=== PATIENT | male | born 1975 | race Caucasian/White ===

== ENCOUNTER 2017-09-17 02:41 | Emergency (ER) | payer OTHER ==
[~2017-09-17] VITALS: Ht 180.3 cm; Wt 123.0 kg
[~2017-09-17 02:41] MED LIST: ALLO100T PO; LISI20TA3 PO; METO50TA16 PO; NIAC100T5 PO; OMEP40CA41 PO
[2017-09-17 02:43] VITALS: Ht 180.3 cm; Wt 123.0 kg
[2017-09-17] MEDS ORDERED: LORAZEPAM 2 MG/ML 1 ML VIAL IV STA (03:06)
--- NOTE | 2017-09-17 03:07 | EMERGENCY ROOM VISIT NOTE ---
History Report prepared by Consuelo: Henrik Carter Under the Supervision of: Dr. Flori Enriquez D.O. First contact with patient: 02:55 Chief Complaint: BACK INJURY Stated Complaint: BACK INJURY History of Present Illness The patient is a 42 year old male who presents to the Emergency Room with complaints of constant back pain that onset suddenly yesterday. The patient states that he attempted to bend over yesterday to pick something up off of a low shelf. He felt his back pain onset immediately after bending over. He has had back pain in the past and commonly takes Metaxalone. The patient went to sleep last night and woke up this morning at 0200 in "intense" pain. The pain is now radiating around the left hip and down the left leg. He cannot lift his left leg without sharp pain and claims that he had to crawl to the car to get to the hospital this evening. He did take a Metaxalone tablet for his pain today. The patient denies ever having any imaging of the spine performed in the past. Source of History: patient Onset: Yesterday Position: back Symptom Intensity: "intense" Quality: sharp Timing: constant Review of Systems See HPI for pertinent positives & negatives. A total of 10 systems reviewed and were otherwise negative. Past Medical & Surgical Medical Problems: (1) Gout (2) High triglycerides (3) HTN (hypertension) (4) HTN (hypertension) Family History Patient reports no known family medical history. Social History Smoking Status: Never Smoker Drug Use: none Marital Status: Occupation Status: employed Current/Historical Medications Scheduled Lisinopril (Lisinopril), 15 MG PO DAILY Metoprolol Tartrate (Lopressor) (Lopressor), 50 MG PO BID Scheduled PRN Metaxalone (Skelaxin), 800 MG PO QID PRN for Pain Allergies Coded Allergies: Indomethacin (Unverified Allergy, Intermediate, swollen tongue, 09/17/17) Physical Exam Vital Signs Date Time Temp Pulse Resp B/P (MAP) Pulse Ox O2 Delivery O2 Flow Rate FiO2 09/17/17 04:33 36.3 72 18 125/65 96 Room Air 09/17/17 03:42 36.4 70 18 122/74 96 Room Air 09/17/17 02:43 36.4 76 18 164/113 95 Room Air Physical Exam Heart: Regular rate and rhythm. There is a normal S1 and S2 with no murmurs, clicks, or gallops appreciated. Lungs: Clear to auscultation bilaterally with no wheezes, rales, or rhonchi. Abdomen: Soft, completely nontender, nondistended, with good bowel sounds. There are no palpable pulsatile masses or hepatosplenomegaly. There is no guarding, rigidity, or rebound noted. Back: There is moderate discomfort with palpation of the left lower back. There is significant muscle spasm. Extremities: No evidence of cyanosis, clubbing, or edema. There are easily palpable peripheral pulses. Skin: warm and dry with good turgor and no rashes. Medical Decision & Procedures Medications Administered Medications (Trade) Dose Ordered Sig/Cam Route Start Time Stop Time Status Last Admin Dose Admin Lorazepam (Ativan Inj) 1 mg NOW STAT IV 09/17/17 03:06 09/17/17 03:07 DC 09/17/17 03:11 1 MG Ketorolac Tromethamine (Toradol Inj) 30 mg NOW STAT IV 09/17/17 03:09 09/17/17 03:10 DC 09/17/17 03:13 30 MG Ketorolac Tromethamine (Toradol Inj) 30 mg NOW STAT IV 09/17/17 03:48 09/17/17 03:50 DC 09/17/17 03:52 30 MG Oxycodone/ Acetaminophen (Percocet 5-325mg Tab) 2 tab NOW ONCE PO 09/17/17 04:30 09/17/17 04:31 DC 09/17/17 04:23 2 TAB Oxycodone/ Acetaminophen (Percocet 5/ 325MG Home Pack) 1 homepack UD ONCE PO 09/17/17 04:30 09/17/17 04:31 DC 09/17/17 04:22 1 HOMEPACK Procedure Medications Ordered: Toradol X 2, Ativan, Percocet ED Course 0256: Past medical records reviewed. The patient was evaluated in room B10. A complete history and physical exam was performed. 0306: Ordered Ativan 1 mg IV. 0309: Ordered Toradol 30 mg IV. 0344: I checked on the patient at this time. He has experienced moderate relief. 0348: Ordered Toradol 30 mg IV. 0426: Upon reevaluation, the patient feels better. He has some discomfort with standing still. I discussed findings and results with the patient. He verbalized agreement of the treatment plan. The patient will be discharged home with a Percocet homepack. 0430: Ordered 1 Percocet homepack PO. Medical Decision The patient is a 42 year old male who presents to the Emergency Department for lower back pain. Differential Diagnosis includes; Acute lumbar disc herniation, sciatica, ureteral colic, cauda equina syndrome, and lumbar strain. The patient presents here after bending over to pick something up off of a shelf and having acute and sudden onset of left-sided low back pain. The pain seems to radiate around his left flank, left groin and left anterior thigh. The patient has normal pedal push and pull in the left lower extremity. He is unable to lift leg up off the bed because of the pain in the back. The patient has normal sensation in both of his feet. The patient does describe a history of intermittent episodes of low back pain. I explained to him that he would most likely require an MRI of the lumbar spine at some point to rule out acute disc herniation. The patient got moderate relief of his discomfort in the low back after receiving the IV analgesia and muscle relaxant. The patient will be discharged home with a Percocet home pack. He is encouraged to use Motrin and his previous prescribed muscle relaxant. The patient was told to follow-up with his PCP for possible MRI of the lumbar spine. If symptoms worsen or if the patient develops any weakness in his legs or difficulty controlling his bowels or bladder he will need to return to the emergency department immediately. Medication Reconcilliation Current Medication List: was personally reviewed by me Blood Pressure Screening Patient's blood pressure: Elevated blood pressure BP elevated secondary to pain, situational. Impression Primary Impression: Strain of lumbar region Scribe Attestation The scribe's documentation has been prepared under my direction and personally reviewed by me in its entirety. I confirm that the note above accurately reflects all work, treatment, procedures, and medical decision making performed by me. Departure Information Dispostion Home / Self-Care Referrals Linnea Hunt D.O. (PCP) Forms HOME CARE DOCUMENTATION FORM, IMPORTANT VISIT INFORMATION Patient Instructions My [facility] [place] Additional Instructions Rest. Do not lift anything greater than 5 lbs. Limit strenuous activity. Apply heat to the low back. Motrin - 800mg every 6 hours with food for pain. Use the muscle relaxant as directed. Problem Qualifiers Primary Impression: Strain of lumbar region Encounter type: initial encounter Qualified Codes: S39.012A - Strain of muscle, fascia and tendon of lower back, initial encounter
[2017-09-17] MEDS ORDERED: KETOROLAC TROMETHAMINE 30 MG/ML VIAL IV STA ×2 (03:09→03:48)
[2017-09-17] MEDS ORDERED: META-38 PO (03:23)
[2017-09-17] MEDS ORDERED: LISI-461 PO (03:23)
[2017-09-17] MEDS ORDERED: OXYCODONE/ACETAMINOPHEN 5-325 TAB PO ONE (04:30)
[2017-09-17] MEDS ORDERED: PERCOCET HOME PACK PO ONE (04:30)
[2017-09-17 04:33] VITALS: BP 125/65; PULSE 72; TEMP 36.3; O2SAT 96
== END 2017-09-17 04:34 | disposition home or self-care (01) ==
LOC: C.EDB 02:42
DX: S39.012A Strain of muscle, fascia and tendon of lower back, initial encounter (principal); I10 Essential (primary) hypertension; X50.1XXA Overexertion from prolonged static or awkward postures, initial encounter